=== PATIENT | female | born 1965 | race Caucasian/White ===

== ENCOUNTER → 2017-04-24 | Day surgery (SDC) | payer MEDICARE ==
[~2017-04-24] VITALS: Ht 150 cm; Wt 81.8 kg
[2017-04-24 07:21] LABS: HCT 40.8 % (37.0-47.0); HGB 14.2 g/dl (12.5-16.0); MCH 31.2 pg (25.0-31.0); MCHC 34.8 g/dL (32.0-36.0); MCV 89.7 fL (78.0-100.0); MPV 8.6 fL (6.0-9.5); RBC 4.55 M/uL (4.20-5.40); RDW 12.6 % (11.5-14.0); WBC 7.4 K/uL (4.0-10.5)
[2017-04-24 07:40] LABS: ALBUMIN 4.2 g/dL (3.5-5.0); BILIRUBIN - TOTAL 0.9 mg/dL (0.1-1.0); CREATININE 0.7 mg/dL (0.5-1.0); GLOBULIN (CALCULATION) 2.7 g/dL (2.2-4.2); POTASSIUM 4.4 mmol/L (3.5-5.1); TOTAL PROTEIN 6.9 g/dL (6.4-8.3)
== END | disposition home or self-care (01) ==
LOC: FAS 07:08
PROVIDERS: Surgery
DX: Z12.11 Encounter for screening for malignant neoplasm of colon (principal); D12.0 Benign neoplasm of cecum; K57.30 Diverticulosis of large intestine without perforation or abscess without bleeding; K58.9 Irritable bowel syndrome, unspecified; F41.9 Anxiety disorder, unspecified; I10 Essential (primary) hypertension; E78.5 Hyperlipidemia, unspecified; D64.9 Anemia, unspecified; F32.9 Major depressive disorder, single episode, unspecified; E78.00 Pure hypercholesterolemia, unspecified; Z90.710 Acquired absence of both cervix and uterus; Z79.899 Other long term (current) drug therapy
CPT/HCPCS: 36415; 80053; 88305; J2405; J2704

== ENCOUNTER 2021-02-09 17:24 | Emergency (ER) | payer MEDICARE ==
[~2021-02-09 17:24] MED LIST: MEDROL4 MG PO; MOTRIN600 MG PO; PEPCID AC20 MG PO; VENLAFAXINE HCL75 M2 PO
== END 2021-02-09 18:21 | disposition home or self-care (01) ==
LOC: FER 17:24
DX: S51.812A Laceration without foreign body of left forearm, initial encounter (principal); Z23 Encounter for immunization; W22.8XXA Striking against or struck by other objects, initial encounter
CPT/HCPCS: 73090; 90715